=== PATIENT | male | born 1965 | race Caucasian/White ===

== ENCOUNTER → 2016-10-04 | Outpatient (CLI) | payer BC ==
[~2016-10-04] MED LIST: ASPIRIN81 MG PO; ATORVASTATIN CA40 MG PO; CATAFLAM50 MG PO; COREG3.125 MG PO; EFFIENT10 MG PO; FLEXERIL10 MG PO; HYDROCODON-ACE1 EAC9 PO; NITROGYLCERIN SUBLINGUAL; NORCO 7.5-3251 EACH PO; SPIRIVA18 MCG INH; SYMBICORT INH; VISTARIL PO; ZESTRIL5 MG PO
--- NOTE | ~2016-10-04 | TH ---
Unit #: [id number] #: [id number] Patient: BEVERLY SHAIKH [id number] [address] [address] [id number] O MR#: [id number] NAME: BEVERLY SHAIKH : 1965 SEX: M STUDY DATE/TIME: 10/04/2016 UNIT: [facility] ROOM: STUDY DESCRIPTION: Ex. Cardiolite Stress Attending Physician: Parisa Churchill M.D. Referring Physician: Parisa Churchill M.D. Primary Care Physician: Dhara Quiroga A.P.R.N. CARDIOLOGY REPORT EXAM Exercise Cardiolite stress test, nuclear portion. PROCEDURE Using technetium-99m labeled Cardiolite, rest and stress SPECT images were obtained. Multiple SPECT images were obtained in various views including horizontal and vertical long axis and short axis views of the left ventricle. Images were obtained by gated SPECT method. Patient was administered 10.43 mCi of Cardiolite at rest. Patient was administered 31.7 mCi of Cardiolite at peak exercise. Total exercise time is 8 minutes. On the stress images, there is normal perfusion noted. The rest images show normal perfusion. Comparing rest and stress images, there is no stress induced ischemia noted. The left ventricular ejection fraction is calculated to be 58%. There is no focal wall motion abnormality seen. CONCLUSIONS 1. No stress induced ischemia noted. 2. The left ventricular ejection fraction is calculated to be 58%. 3. There is no focal wall motion abnormality seen. 4. Normal exercise Cardiolite stress test. Dictated by... Estrella Crook TD: 10/04/2016 12:39 JOB #: [id number] CARDIOLOGY REPORT Page 1 of 1 X Venessa Lucas MD <ELECTRONICALLY SIGNED> 01/12/17 1429 CARDIOLOGY REPORT
--- NOTE | ~2016-10-04 | ST ---
Unit #: [id number] #: [id number] Patient: BEVERLY SHAIKH [id number] [address] [address] [id number] O MR#: [id number] NAME: BEVERLY SHAIKH : 1965 SEX: M STUDY DATE/TIME: 10/04/2016 UNIT: [facility] ROOM: STUDY DESCRIPTION: Exercise stress test Attending Physician: Parisa Churchill M.D. Referring Physician: Parisa Churchill M.D. Primary Care Physician: Alex ArellanoRKailey CARDIOLOGY REPORT PROCEDURE PERFORMED Exercise Cardiolite stress test. PROCEDURE BASELINE EKG: Normal sinus rhythm with ventricular rate 68 beats per minute, poor R wave progression, mild left atrial abnormality. The patient walked on the treadmill for 8 minutes utilizing the José protocol, achieving a workload of 10.1 METS. He achieved 86% of the maximum target heart rate at 148 beats per minute with a maximum blood pressure response of 165/86 mmHg. EKG during the test was equivocal to baseline. No acute ischemic changes. The patient had no complaints of chest pain, palpitations or dizziness. Had increased shortness of breath and fatigue, which resolved in the recovery phase. IMPRESSION 1. Functional class 3 with a workload of 10.1 METS. 2. Patient walked for 8 minutes achieving 86% of maximum target heart rate at 148 beats per minute with a maximum blood pressure response of 165/86 mmHg. 3. EKG during the test was equivocal to baseline. No acute ischemic changes. 4. The patient had no complaints of chest pain, palpitations or dizziness. Had increased shortness of breath and fatigue, which resolved in recovery phase. 5. Cardiolite was injected at maximum target heart rate. Radionuclide test pending. Please correlate with nuclear images. Dictated by... Kathryn Salmon.P.RJonasNJonas for Estrella Crook TD: 10/04/2016 10:26 JOB #: [id number] Unit #: [id number] #: [id number] Patient: BEVERLY SHAIKH CARDIOLOGY REPORT Page 1 of 1 X Jody Ramsay APRN CARDIOLOGY REPORT
== END | disposition home or self-care (01) ==
LOC: CNUC 08:05
DX: Z02.1 Encounter for pre-employment examination (principal); I25.10 Atherosclerotic heart disease of native coronary artery without angina pectoris
CPT/HCPCS: 78452; 93017; A9500